=== PATIENT | male | born 1940 | race Caucasian/White ===

== ENCOUNTER 2021-11-04 08:49 | Day surgery (SDC) | payer MEDICARE, OTHER ==
[~2021-11-04] VITALS: Ht 182.9 cm; Wt 95.8 kg
[2021-11-04] VITALS (11 sets, daily range): BP systolic 123–159; BP diastolic 49–91
[2021-11-04] MEDS ORDERED: PRAV10TA39 PO (09:20)
[2021-11-04] MEDS ORDERED: CARV6.2555 PO (09:20)
[2021-11-04] MEDS ORDERED: HYDR25TA5 PO (09:20)
[2021-11-04] MEDS ORDERED: OMEG-133 PO (09:21)
[2021-11-04] MEDS ORDERED: DAPS100T2 PO (09:24)
[2021-11-04] MEDS ORDERED: Vit D3 PO (09:24)
[2021-11-04] MEDS ORDERED: ASPI-1071 PO (09:24)
[2021-11-04] MEDS ORDERED: [UNRECOGNIZED DRUG - CODE] PO (09:24)
[2021-11-04] MEDS ORDERED: diphenhydrAMINE 25mg capsule PO PRN (09:25)
[2021-11-04] MEDS ORDERED: normal saline 1,000 ML IV SCH (09:25)
[2021-11-04 10:17] LABS: BASOPHILS % (AUTO) 0.4 % (0-1); EOSINOPHILS # (AUTO) 0.1 X10'3 (0-0.9); EOSINOPHILS % (AUTO) 1.6 % (0-6); HEMATOCRIT 43.8 % (42.0-52.0); HEMOGLOBIN 14.4 g/dl (14.0-17.9); LYMPHOCYTES # (AUTO) 2.3 X10'3 (1.1-4.8); LYMPHOCYTES % (AUTO) 36.8 % (21-51); MEAN CORPUSCULAR HEMOGLOBIN 31.9 PG (27.0-31.0); MEAN CORPUSCULAR VOLUME 96.7 FL (78-98); MEAN PLATELET VOLUME 8.2 FL (7.4-10.4); MONOCYTES # (AUTO) 0.5 X10'3 (0-0.9); MONOCYTES % (AUTO) 8.6 % (2-12); NEUTROPHILS # (AUTO) 3.3 X10'3 (1.8-7.7); NEUTROPHILS % (AUTO) 52.6 % (42-75); PLATELET COUNT 177 X10'3 (140-440); RED BLOOD COUNT 4.53 X10'6 (4.70-6.10); RED CELL DISTRIBUTION WIDTH 13.6 % (11.5-14.5); WHITE BLOOD COUNT 6.3 X10'3 (4.5-11.0)
[2021-11-04 10:25] LABS: ALBUMIN 4.3 G/DL (3.4-5.0); ANION GAP 8 (8-16); BLOOD UREA NITROGEN 16 MG/DL (7-18); BUN/CREATININE RATIO 19.8 (5.4-32.0); CALCIUM 8.9 MG/DL (8.5-10.1); CHLORIDE 102 MMOL/L (99-107); CREATININE 0.81 MG/DL (0.60-1.10); GLUCOSE 121 MG/DL (70-104); MAGNESIUM 1.8 MG/DL (1.5-2.4); POTASSIUM 3.8 MMOL/L (3.5-5.1); SODIUM 139 MMOL/L (135-145); TOTAL CARBON DIOXIDE 28.6 MMOL/L (24-32); eGFR > 90 ML/MIN
[2021-11-04] MEDS ORDERED: nitroGLYCERIN-Tridil 50MG/D5W 250 ML IV ONE (10:27)
[2021-11-04] MEDS ORDERED: heparin 1,000unit/ml 10ml vial 10 ML ONE (10:28)
[2021-11-04] MEDS ORDERED: fentaNYL/PF 50MCG/1 ML 2ML syringe ONE (10:28)
[2021-11-04] MEDS ORDERED: LIDOCAINE 1% w/preservative (10 MG/ML) inj. 10mL VIAL ONE (10:28)
[2021-11-04] MEDS ORDERED: iohexol 350 MG/1 ML 200ml bottle ONE (10:28)
[2021-11-04] MEDS ORDERED: midazolam 1 mg/ML 2ml injection ONE ×2 (10:28→11:06)
[2021-11-04] MEDS ORDERED: verapamil 2.5 mg/ml inj IV ONE (10:28)
[2021-11-04] MEDS ORDERED: iohexol 350 MG/ML 50ML vial IV ONE (11:49)
[2021-11-04] MEDS ORDERED: clopidogrel 300mg tablet ONE (12:12)
[2021-11-04] MEDS ORDERED: ondansetron/PF 4mg/2ml inj IV PRN (12:35)
[2021-11-04] MEDS ORDERED: proCHLORperazine 10 MG/2 ml inj IV PRN (12:40)
[2021-11-04] MEDS ORDERED: HYDROcodone/acetaminophen 5mg/325mg tablet PO PRN (12:40)
[2021-11-04] MEDS ORDERED: acetaminophen 325mg tablet PO PRN (12:40)
[2021-11-04] MEDS ORDERED: HYDROcodone/acetaminophen 10/325mg tab PO PRN (12:40)
== END 2021-11-04 16:10 | disposition home or self-care (01) ==
LOC: SSTAY O 08:49
PROVIDERS: ATTEND Internal Medicine Cardiovascular Disease
DX: R06.09 Other forms of dyspnea (principal); I25.118 Atherosclerotic heart disease of native coronary artery with other forms of angina pectoris; I25.2 Old myocardial infarction; E78.5 Hyperlipidemia, unspecified; I10 Essential (primary) hypertension; I45.10 Unspecified right bundle-branch block; M10.9 Gout, unspecified; Z79.899 Other long term (current) drug therapy; Z79.82 Long term (current) use of aspirin; Z91.018 Allergy to other foods; Z98.890 Other specified postprocedural states; Z72.89 Other problems related to lifestyle; Z87.891 Personal history of nicotine dependence; Z82.49 Family history of ischemic heart disease and other diseases of the circulatory system
CPT/HCPCS: 36415; 80048; 83735; 85025; 85610; 93005; 93458; 93571; 93572; 99152; 99153; C1725; C1751; C1769; C1874; C1894; C9600; J1644; J2250; J3010; J3490; J7030; Q0163; Q9967; A4620; A5120; A6258

== ENCOUNTER 2023-07-03 08:17 | Day surgery (SDC) | payer MEDICARE, OTHER ==
[2023-06-28 15:32] LABS: BILIRUBIN,URINE NEGATIVE (Neg); CLARITY,URINE CLEAR (Clear); COLOR,URINE YELLOW (Yellow); GLUCOSE, URINE NEGATIVE (Neg); KETONES,URINE NEGATIVE (Neg); LEUKOCYTE ESTERASE ,URINE NEGATIVE (Neg); NITRITES, URINE NEGATIVE (Neg); OCCULT BLOOD,URINE NEGATIVE (Neg); PH,URINE 6.5 (4.8-8.0); PROTEIN,URINE NEGATIVE (Neg); UROBILINOGEN,URINE 0.2 E.U/dL (0.2-1.0)
[2023-06-28 15:33] LABS: BASOPHILS # (AUTO) 0.1 X10'3 (0-0.2); BASOPHILS % (AUTO) 0.8 % (0-1); EOSINOPHILS # (AUTO) 0.1 X10'3 (0-0.9); LYMPHOCYTES # (AUTO) 2.2 X10'3 (1.1-4.8); LYMPHOCYTES % (AUTO) 27.6 % (21-51); MEAN CORPUSCULAR HEMOGLOBIN 30.7 PG (27.0-31.0); MEAN CORPUSCULAR HGB CONC 32.6 g/dL (33.0-36.5); MEAN CORPUSCULAR VOLUME 94.1 FL (78-98); MEAN PLATELET VOLUME 7.9 FL (7.4-10.4); MONOCYTES # (AUTO) 0.7 X10'3 (0-0.9); MONOCYTES % (AUTO) 9.2 % (2-12); NEUTROPHILS % (AUTO) 61.4 % (42-75); PRE OP HEMATOCRIT 37.3 % (42.0-52.0); PRE OP HEMOGLOBIN 12.2 g/dL (14.0-17.9); PRE OP PLATELET COUNT 278 X10'3 (140-440); PRE OP WHITE BLOOD COUNT 8.1 10'3 (4.8-10.8); RED BLOOD COUNT 3.97 X10'6 (4.70-6.10); RED CELL DISTRIBUTION WIDTH 13.5 % (11.5-14.5)
[2023-06-28 15:35] LABS: UA COLLECTION TYPE NON-SPECIFIED
[2023-06-28 15:46] LABS: APTT 27 SECONDS (22-32); PROTHROMBIN TIME 10.7 SECONDS (9.0-12.0)
[2023-06-28 15:47] LABS: ALBUMIN 3.8 G/DL (3.4-5.0); ALBUMIN/GLOBULIN RATIO 1.2 (1.1-1.5); ALKALINE PHOSPHATASE 53 IU/L (46-116); BLOOD UREA NITROGEN 14 MG/DL (7-18); BUN/CREATININE RATIO 18.2 (10.0-20.0); CALCIUM 8.5 MG/DL (8.5-10.1); CHLORIDE 100 MMOL/L (99-107); CREATININE 0.77 MG/DL (0.60-1.10); PRE OP ALT 26 U/L (30-65); PRE OP ANION GAP 8 (8-16); PRE OP AST 23 U/L (10-37); PRE OP BILIRUB, TOTAL 1.1 MG/DL (0.0-1.0); PRE OP GLUCOSE 100 MG/DL (70-104); PRE OP POTASSIUM 3.8 MMOL/L (3.4-5.1); PRE OP SODIUM 135 MMOL/L (135-145); TOTAL CARBON DIOXIDE 26.6 MMOL/L (24-32); eGFR > 90 ML/MIN
[~2023-07-03] VITALS: Ht 182.9 cm; Wt 95.9 kg
[2023-07-03] VITALS (11 sets, daily range): BP systolic 109–143; BP diastolic 55–82; PULSE 55–72; RESP 14–18; TEMP 97.7; O2SAT 92–96
[~2023-07-03 08:17] MED LIST: ASPI-1071 PO; CHOL200074 PO; DAPS100T2 PO; HYDR25TA5 PO; OMEG-133 PO; PRAV10TA39 PO; cefazolin 2gm/D5W 100mL 100 ML IV ONE; famotidine 20mg tablet PO ONE; ringers solution, lacted 1,000 ML IV SCH
[2023-07-03] MEDS ORDERED: morphine 2 MG/ML inj. syringe IV PRN (08:45)
[2023-07-03] MEDS ORDERED: morphine 4 MG/ML inj SYRINge IV PRN (08:45)
[2023-07-03] MEDS ORDERED: proCHLORperazine 10 MG/2 ml inj IV PRN (08:45)
[2023-07-03] MEDS ORDERED: ondansetron/PF 4mg/2ml inj IV PRN (08:45)
[2023-07-03] MEDS ORDERED: ringers solution, lacted 1,000 ML IV SCH (08:45)
[2023-07-03] MEDS ORDERED: meperidine/PF 25mg/ml syringe IV PRN ×3 (08:45)
[2023-07-03] MEDS ORDERED: fentaNYL/PF 50MCG/1 ML 2ML syringe ONE (09:19)
[2023-07-03] MEDS ORDERED: midazolam 1 mg/ML 2ml injection ONE (09:19)
[2023-07-03] MEDS ORDERED: propofol inj 20 ML IV ONE (09:21)
[2023-07-03] MEDS ORDERED: bupivacaine (with preservative) 5 mg/ml inj. 50ml IJ ONE (10:05)
== END 2023-07-03 11:44 | disposition home or self-care (01) ==
LOC: PAS 08:17
PROVIDERS: ATTEND Specialist
DX: G56.01 Carpal tunnel syndrome, right upper limb (principal); I10 Essential (primary) hypertension; I25.10 Atherosclerotic heart disease of native coronary artery without angina pectoris; I25.2 Old myocardial infarction; E78.5 Hyperlipidemia, unspecified; M19.042 Primary osteoarthritis, left hand; M19.041 Primary osteoarthritis, right hand; Z95.5 Presence of coronary angioplasty implant and graft; Z79.899 Other long term (current) drug therapy; Z98.890 Other specified postprocedural states; Z87.891 Personal history of nicotine dependence; Z72.89 Other problems related to lifestyle; Z79.82 Long term (current) use of aspirin; Z91.018 Allergy to other foods; Z79.01 Long term (current) use of anticoagulants
CPT/HCPCS: 36415; 64721; 80053; 81003; 82948; 85025; 85610; 85730; A6222; J0690; J2250; J2704; J3010; J3490; J7030; J7120; Z7506; Z7512; A4565; A6449; A7000